=== PATIENT | female | born 2000 | race Two or more races ===

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

== ENCOUNTER → 2021-10-29 | Day surgery (SDC) | payer OTHER ==
[2021-10-22 15:44] LABS: BASOPHILS % (AUTO) 0.2 % (0-1); EOSINOPHILS % (AUTO) 0.4 % (0-6); HEMOGLOBIN 11.6 g/dl (12.0-16.0); LYMPHOCYTES % (AUTO) 11.5 % (21-51); MEAN CORPUSCULAR HEMOGLOBIN 32.9 PG (27.0-31.0); MEAN CORPUSCULAR HGB CONC 34.2 g/dL (33.0-36.5); MEAN CORPUSCULAR VOLUME 96.3 FL (78-98); MEAN PLATELET VOLUME 7.8 FL (7.4-10.4); MONOCYTES # (AUTO) 0.5 X10'3 (0-0.9); NEUTROPHILS # (AUTO) 7.5 X10'3 (1.8-7.7); NEUTROPHILS % (AUTO) 82.9 % (42-75); PLATELET COUNT 243 X10'3 (140-440); RED BLOOD COUNT 3.53 X10'6 (4.20-5.60); RED CELL DISTRIBUTION WIDTH 13.6 % (11.5-14.5)
[2021-10-22 15:49] LABS: APTT 26 SECONDS (22-32)
[2021-10-22 15:50] LABS: ALANINE AMINOTRANSFERASE 25 U/L (12-78); ALBUMIN 3.3 G/DL (3.4-5.0); ALBUMIN/GLOBULIN RATIO 0.8 (1.1-1.5); ALKALINE PHOSPHATASE 48 IU/L (20-180); ANION GAP 11 (8-16); ASPARTATE AMINO TRANSFERASE 22 U/L (10-37); BILIRUBIN,TOTAL 0.3 MG/DL (0.1-1.0); BLOOD UREA NITROGEN 9 MG/DL (7-18); BUN/CREATININE RATIO 17.6 (6.6-38.0); CALCIUM 8.8 MG/DL (8.5-10.1); CHLORIDE 101 MMOL/L (99-107); CREATININE 0.51 MG/DL (0.40-0.90); GLUCOSE 70 MG/DL (70-104); POTASSIUM 3.7 MMOL/L (3.5-5.1); SODIUM 136 MMOL/L (135-145); TOTAL CARBON DIOXIDE 24.1 MMOL/L (24-32); TOTAL PROTEIN 7.3 G/DL (6.4-8.2); eGFR > 90 ML/MIN
[2021-10-22 15:55] LABS: HCG SERUM QL POSITIVE
[~2021-10-29] VITALS: Ht 160 cm; Wt 68.5 kg
[~2021-10-29] MED LIST changes: +LIDOCAINE 1%/EPI 1:100,000 inj. 10 ML multi-dose vial ONE; +cocaine 4% topical solution 4ml bottle ONE; +diazepam 5mg tablet PO ONE; +famotidine 20mg tablet PO ONE; +methylPREDNISolone acetate 80mg/ml inj**IM only ONE; +mupirocin 2% ointment 22GM ONE; +oxymetazoline 15 ML nasal spray NS ONE; +oxymetazoline 15 ML nasal spray NS SCH; +ringers solution, lacted 1,000 ML IV SCH
== END | disposition home or self-care (01) ==
LOC: PRE-OP 07:49
PROVIDERS: ATTEND Otolaryngology
DX: J34.2 Deviated nasal septum (principal); Z53.8 Procedure and treatment not carried out for other reasons; J34.3 Hypertrophy of nasal turbinates; J32.8 Other chronic sinusitis; Z20.822 Contact with and (suspected) exposure to COVID-19; Z79.01 Long term (current) use of anticoagulants
CPT/HCPCS: 36415; 80053; 84703; 85025; 85576; 85610; 85730; 87635; C9803; J7120; U0003; U0005; J1040; J3490

== ENCOUNTER 2021-11-19 06:21 | Day surgery (SDC) | payer OTHER ==
[2021-11-12 13:40] LABS: BASOPHILS % (AUTO) 0.1 % (0-1); EOSINOPHILS # (AUTO) 0.1 X10'3 (0-0.9); EOSINOPHILS % (AUTO) 0.7 % (0-6); LYMPHOCYTES # (AUTO) 2.4 X10'3 (1.1-4.8); LYMPHOCYTES % (AUTO) 23.2 % (21-51); MEAN CORPUSCULAR HEMOGLOBIN 33.1 PG (27.0-31.0); MEAN CORPUSCULAR HGB CONC 33.8 g/dL (33.0-36.5); MEAN CORPUSCULAR VOLUME 97.9 FL (78-98); MEAN PLATELET VOLUME 7.5 FL (7.4-10.4); MONOCYTES # (AUTO) 0.5 X10'3 (0-0.9); NEUTROPHILS # (AUTO) 7.3 X10'3 (1.8-7.7); PRE OP HEMATOCRIT 33.4 % (35.0-45.0); PRE OP HEMOGLOBIN 11.3 g/dL (12.0-16.0); PRE OP PLATELET COUNT 278 X10'3 (140-440); RED BLOOD COUNT 3.41 X10'6 (4.20-5.60); RED CELL DISTRIBUTION WIDTH 13.3 % (11.5-14.5)
[2021-11-12 13:53] LABS: PRE OP PROTIME 9.9 SECONDS (9.0-12.0)
[2021-11-12 13:54] LABS: ALBUMIN 3.1 G/DL (3.4-5.0); ALBUMIN/GLOBULIN RATIO 0.8 (1.1-1.5); ALKALINE PHOSPHATASE 54 IU/L (20-180); BLOOD UREA NITROGEN 7 MG/DL (7-18); BUN/CREATININE RATIO 17.5 (6.6-38.0); CALCIUM 8.6 MG/DL (8.5-10.1); CHLORIDE 104 MMOL/L (99-107); PRE OP ALT 40 U/L (30-65); PRE OP ANION GAP 6 (8-16); PRE OP AST 25 U/L (10-37); PRE OP BILIRUB, TOTAL 0.1 MG/DL (0.0-1.0); PRE OP GLUCOSE 78 MG/DL (70-104); PRE OP SODIUM 136 MMOL/L (135-145); TOTAL CARBON DIOXIDE 25.9 MMOL/L (24-32); TOTAL PROTEIN 7.2 G/DL (6.4-8.2); eGFR > 90 ML/MIN
[2021-11-12 13:55] LABS: PRE OP POTASSIUM 3.2 MMOL/L (3.4-5.1)
[~2021-11-19] VITALS: Ht 160 cm; Wt 73.3 kg
[2021-11-19] VITALS (13 sets, daily range): BP systolic 109–121; BP diastolic 62–76
[~2021-11-19 06:21] MED LIST changes: -LIDOCAINE 1%/EPI 1:100,000 inj. 10 ML multi-dose vial ONE; -NO HOME MEDS; +PNV11TAB5 PO; -cocaine 4% topical solution 4ml bottle ONE; -methylPREDNISolone acetate 80mg/ml inj**IM only ONE; -mupirocin 2% ointment 22GM ONE; -oxymetazoline 15 ML nasal spray NS ONE; +oxymetazoline 15 ML nasal spray NS PRN; -oxymetazoline 15 ML nasal spray NS SCH
[2021-11-19] MEDS ORDERED: LIDOcaine 1% W/epiNEPHrine 1:100,000 20ml vial ONE ×2 (06:55→07:00)
[2021-11-19] MEDS ORDERED: cocaine 4% topical solution 4ml bottle ONE (06:55)
[2021-11-19] MEDS ORDERED: mupirocin 2% ointment 22GM ONE ×2 (06:55→07:00)
[2021-11-19] MEDS ORDERED: oxymetazoline 15 ML nasal spray NS ONE (06:55)
[2021-11-19] MEDS ORDERED: ringers solution, lacted 1,000 ML IV SCH (07:10)
[2021-11-19] MEDS ORDERED: ondansetron/PF 4mg/2ml inj IV PRN (07:10)
[2021-11-19] MEDS ORDERED: fentaNYL/PF 50MCG/1 ML 2ML syringe IV PRN ×2 (07:10)
[2021-11-19] MEDS ORDERED: hydrALAZINE 20mg/ml inj. IV PRN (07:10)
[2021-11-19] MEDS ORDERED: morphine 2 MG/ML inj. syringe IV PRN (07:10)
[2021-11-19] MEDS ORDERED: labetalol 20mg/4ml (5mg/ml) syringe IV PRN (07:10)
[2021-11-19] MEDS ORDERED: morphine 4 MG/ML inj SYRINge IV PRN (07:10)
[2021-11-19 07:42] LABS: ISTAT ANION GAP 11 (8-12); ISTAT BUN 9 mg/dL (7-18); ISTAT CL 106 mmol/L (99-107); ISTAT CREATININE 0.4 mg/dL (0.6-1.1); ISTAT GLUCOSE 84 mg/dL (70-105); ISTAT HGB 11.2 g/dl (12.0-16.0); ISTAT Hct 33 %PCV (35-48); ISTAT K 3.8 mmol/L (3.5-5.1); ISTAT NA 138 mmol/L (135-145); ISTAT TOTAL CO2 21 mmol/L (24-32); ISTAT eGFR > 90 ML/MIN; POC BUN/CREATININE RATIO 22.5 (6.6-38.0)
[2021-11-19] MEDS ORDERED: LIDOcaine 2% (20mg/ml) 5ml vial ONE (07:52)
[2021-11-19] MEDS ORDERED: propofol inj 20 ML IV ONE (07:52)
[2021-11-19] MEDS ORDERED: midazolam 1 mg/ML 2ml injection ONE (07:52)
[2021-11-19] MEDS ORDERED: ondansetron/PF 4mg/2ml inj ONE (07:52)
[2021-11-19] MEDS ORDERED: morphine 10mg/ml inj. ONE ×2 (07:52)
[2021-11-19] MEDS ORDERED: ceFAZolin 1000mg inj ONE ×2 (09:04)
--- NOTE | 2021-11-19 09:45 | NUR ---
Received from OR via [facility], accompanied by Anesthesiologist DR. LOPEZ and report given. PATIENT 23 WEEKS , WAKING UP, NO S/S OF PAIN, V/S WNL, SCD ON, 20G TO RUE, COTTONOIDS TO BILAT NARES-INTACT, NO DRAINAGE NOTED.
[2021-11-19] MEDS ORDERED: salt irrigation nasal spray 45 ML SPRAY NS SCH (10:16)
--- NOTE | 2021-11-19 11:35 | NUR ---
PT UP AND DRESSED, VSS, DENIES ANY PAIN, NAUSEA BETTER AFTER ZOFRAN-NO FURTHER EMESIS, PIV D/CD- CANNULA INTACT, DISCUSSED HOME CARE FOR NASAL IRRIGATION AND MEDICATIONS, PT USED OCEAN SPRAY AND OINTMENT BEFORE LEAVING, ALL QUESTIONS ANSWERED, FRESH GAUZE PLACE UNDER NOSE, PT TAKEN WITH SUPPLIES AND BELONGINGS TO VEHICLE, TRANSPORTED HOME BY MOM.
== END 2021-11-19 11:35 | disposition home or self-care (01) ==
LOC: PAS 06:21
PROVIDERS: ATTEND Otolaryngology
DX: J34.2 Deviated nasal septum (principal); J34.3 Hypertrophy of nasal turbinates; J32.8 Other chronic sinusitis; J34.89 Other specified disorders of nose and nasal sinuses; Z79.01 Long term (current) use of anticoagulants
CPT/HCPCS: 30140; 30520; 31254; 31267; 36415; 61782; 80047; 80053; 85025; 85576; 85610; 85730; 87070; 87075; 87102; A6402; C9250; J0690; J2250; J2274; J2405; J2704; J3490; J7030; J7040; J7120; Z7506; Z7508; Z7512; A4618; A7000